=== PATIENT | female | born 1980 | race African-American/Black ===

== ENCOUNTER 2024-04-05 17:41 | Emergency (ER) | payer SELFPAY ==
[~2024-04-05] VITALS: Ht 170.2 cm; Wt 87.0 kg
[~2024-04-05 17:41] MED LIST: IRON
[2024-04-05 17:56] VITALS: O2SAT 97
[2024-04-05] MEDS ORDERED: DIPHENHYDRAMINE 25MG CAPSULE PO ONE (19:00)
[2024-04-05] MEDS ORDERED: METOCLOPRAMIDE HCL 10MG TABLET PO ONE (19:00)
[2024-04-05] MEDS ORDERED: KETOROLAC 30MG/ML VIAL IM ONE (19:00)
[2024-04-05 21:09] LABS: BASOPHILS % 0.3 % (0.0-2.0); CARBON DIOXIDE 29 mEq/L (21-32); CHLORIDE 102 mEq/L (98-107); EOSINOPHILS % 0.1 % (0.0-5.0); HEMATOCRIT. 38.5 % (36.0-48.0); HEMOGLOBIN. 12.7 g/dL (12.0-16.0); LYMPHOCYTES % 20.8 % (20.0-50.0); MEAN CORPUSCULAR HEMOGLOBIN 28.3 pg (28.0-32.0); MEAN CORPUSCULAR HGB CONC 32.9 g/dL (31.0-37.0); MEAN PLATELET VOLUME 9.3 fl (7.4-10.4); NEUTROPHILS % 72.8 % (40.0-76.0); PLATELET 280 x1000/uL (130-400); POTASSIUM 4.2 mEq/L (3.5-5.1); RED BLOOD CELL COUNT 4.47 mill/uL (4.2-5.4); RED CELL DISTRIBUTION WIDTH 15.3 % (11.6-14.6); SODIUM 137 mEq/L (136-145); WHITE BLOOD COUNT 6.8 x1000/uL (4.5-11.0)
[2024-04-05 21:10] LABS: CALCIUM 10.1 mg/dL (8.7-10.4)
[2024-04-05 21:13] LABS: TROPONIN I HIGH SENSITIVITY < 4 ng/L (3.0-34)
[2024-04-05 21:14] LABS: CREATININE 0.8 mg/dL (0.6-1.0)
[2024-04-05 21:15] LABS: GLUCOSE 84 mg/dL (70-105); UREA NITROGEN BLOOD 7 mg/dL (9-23)
[2024-04-05] MEDS: KETOROLAC 30MG/ML VIAL IM NR (21:15)
[2024-04-05 21:16] LABS: HCG SCREEN NEGATIVE
[2024-04-05] MEDS: DIPHENHYDRAMINE 25MG CAPSULE PO NR (21:17)
[2024-04-05] MEDS: METOCLOPRAMIDE HCL 10MG TABLET PO NR (21:17)
[2024-04-05] MEDS ORDERED: IBUP-2029 MT (21:26)
[2024-04-05 22:37] VITALS: BP 159/95; PULSE 91; RESP 18; TEMP 36.9; O2SAT 98
== END 2024-04-05 22:38 | disposition home or self-care (01) ==
LOC: ER 17:52
DX: R07.89 Other chest pain (principal); G43.909 Migraine, unspecified, not intractable, without status migrainosus; Z98.890 Other specified postprocedural states
CPT/HCPCS: 99285; 71045; 80048; 84703; 85025; 84484; 36415; 93005; J1885; Q0163; J8597